=== PATIENT | male | born 1950 | race Caucasian/White ===

== ENCOUNTER 2016-12-28 08:46 | Emergency (ER) | payer SELFPAY ==
[~2016-12-28] VITALS: Ht 175.3 cm; Wt 78.0 kg
[2016-12-28] MEDS ORDERED: COCAINE TOPICAL SOLN 4%, 4ML TP ONE (09:30)
[2016-12-28] MEDS ORDERED: PHENYLEPHRINE NASAL 1%, 30ML DROPS NAS ONE (09:30)
[2016-12-28 09:43] LABS: HEMATOCRIT 41.9 % (39.2-51.8); HEMOGLOBIN 14.2 g/dL (13.7-18.0); WHITE BLOOD COUNT 5.8 x10^3/uL (3.4-10)
[2016-12-28] MEDS ORDERED: COCAINE TOPICAL SOLN 4%, 4ML ONE (10:26)
[2016-12-28] MEDS ORDERED: PHENYLEPHRINE NASAL 1%, 15ML SPRAY ONE (10:27)
[2016-12-28] MEDS ORDERED: SILVER NITRATE STICK TP ONE (11:18)
[2016-12-28] MEDS ORDERED: BACITRACIN ZINC OINT 500U/GM, 0.9 GM ONE (11:18)
[2016-12-28 13:12] VITALS: BP 148/72
== END 2016-12-28 13:14 | disposition home or self-care (01) ==
LOC: ED 13:00
DX: R04.0 Epistaxis (principal); I10 Essential (primary) hypertension; E78.00 Pure hypercholesterolemia, unspecified; Z86.73 Personal history of transient ischemic attack (TIA), and cerebral infarction without residual deficits
CPT/HCPCS: 36415; 85025; 99283

== ENCOUNTER 2017-01-01 12:16 | Emergency (ER) | payer OTHER ==
[~2017-01-01] VITALS: Ht 175.3 cm; Wt 79.1 kg
[2017-01-01 14:11] VITALS: BP 160/83
== END 2017-01-01 14:13 | disposition home or self-care (01) ==
LOC: ED 13:21
DX: R04.0 Epistaxis (principal); I10 Essential (primary) hypertension
CPT/HCPCS: 99281